=== PATIENT | female | born 1995 | race Caucasian/White ===

== ENCOUNTER 2019-08-07 18:23 | Emergency (ER) | payer OTHER ==
[~2019-08-07] VITALS: Ht 172.7 cm; Wt 97.0 kg
[2019-08-07] MEDS ORDERED: OTC COUGH MED (18:30)
[2019-08-07] MEDS ORDERED: predniSONE 20 MG TAB PO ONE (19:00)
[2019-08-07] MEDS ORDERED: BENZONATATE 100 MG CAP PO ONE (19:00)
[2019-08-07] MEDS ORDERED: ACETAMINOPHEN 325 MG TAB PO ONE (19:15)
[2019-08-07 19:39] VITALS: O2SAT 97
[2019-08-07 19:47] LABS: BASO # 0.1 10^3/uL (0.0-0.2); BASO % 0.8 % (0.0-1.0); EOS # 0.2 10^3/uL (0.0-0.5); EOS % 3.1 % (0.0-3.0); HEMATOCRIT 41.8 % (36.0-47.0); HEMOGLOBIN 14.2 g/dl (12.0-15.5); LYMPH # 3.4 10^3/uL (1.5-5.0); LYMPH % 47.2 % (24.0-44.0); MEAN CORPUSCULAR HEMOGLOBIN 31.8 pg (27.0-33.0); MEAN CORPUSCULAR VOLUME 93.5 fl (80.0-96.0); MONO # 0.4 10^3/uL (0.0-0.8); MONO % 5.3 % (0.0-5.0); NEUTROPHILS # 3.1 10^3/uL (1.5-8.5); NEUTROPHILS % 43.3 % (36.0-66.0); PLATELET COUNT, AUTOMATED 277 10^3/uL (150-450); RED BLOOD COUNT 4.47 10^6/uL (4.00-5.40); WHITE BLOOD COUNT 7.1 10^3/uL (4.0-10.0)
[2019-08-07 20:13] LABS: ALBUMIN 4.3 GM/DL (3.2-5.2); ALT/SGPT 41 U/L (12-78); BILIRUBIN,DIRECT 0.1 MG/DL (0.0-0.2); BILIRUBIN,TOTAL 0.4 MG/DL (0.2-1.0); BLOOD UREA NITROGEN 11 MG/DL (7-18); CALCIUM LEVEL 9.3 MG/DL (8.5-10.1); CARBON DIOXIDE LEVEL 25 MEQ/L (21-32); CHLORIDE LEVEL 108 MEQ/L (98-107); CK-MB VALUE MASS < 1.0 NG/ML (<3.6); CPK CREATINE PHOSPHOKINASE 101 U/L (26-192); CREATININE FOR GFR 0.64 MG/DL (0.55-1.30); GLOMERULAR FILTRATION RATE > 60.0 (>60); GLUCOSE, FASTING 90 MG/DL (70-100); LIPASE 129 U/L (73-393); MB/CK RELATIVE INDEX 0.99 (< OR =4); SODIUM LEVEL 139 MEQ/L (136-145); TOTAL PROTEIN 7.6 GM/DL (6.4-8.2); TROPONIN I < 0.02 NG/ML (< 0.10)
[2019-08-07] MEDS ORDERED: TESS100C PO (20:52)
--- NOTE | 2019-08-07 21:11 | REPVR ---
PROCEDURE INFORMATION: Exam: XR Chest, 1 View Exam date and time: 08/07/2019 8:16 PM Age: 24 years old Clinical indication: Cough and dyspnea; Additional info: Dyspnea/cough TECHNIQUE: Imaging protocol: XR of the chest Views: 1 view. COMPARISON: No relevant prior studies available. FINDINGS: Lungs: Unremarkable. No consolidation. Pleural space: Unremarkable. No pleural effusion. No pneumothorax. Heart/Mediastinum: Unremarkable. No cardiomegaly. Bones/joints: Unremarkable. IMPRESSION: No acute findings. Electronically signed by: Tung Almonte On 08/07/2019 21:11:51 PM
[2019-08-07 22:07] VITALS: BP 128/72
== END 2019-08-07 22:09 | disposition home or self-care (01) ==
LOC: M ED 18:23
DX: J06.9 Acute upper respiratory infection, unspecified (principal); R07.9 Chest pain, unspecified; F17.200 Nicotine dependence, unspecified, uncomplicated
CPT/HCPCS: 36415; 71045; 80048; 80076; 82550; 82553; 83690; 84484; 84702; 85025; 87486; 87581; 87633; 87798; 87880; 99284; U0002

== ENCOUNTER 2020-01-02 11:55 | Emergency (ER) | payer OTHER ==
[~2020-01-02] VITALS: Ht 172.7 cm; Wt 104.5 kg
[~2020-01-02 11:55] MED LIST: OTC COUGH MED; TESS100C PO
[2020-01-02] MEDS ORDERED: ACET-683 PO (12:08)
[2020-01-02] MEDS ORDERED: PRENTAB53 PO (12:08)
[2020-01-02 13:06] VITALS: BP 124/88
== END 2020-01-02 13:15 | disposition home or self-care (01) ==
LOC: M ED 11:55
DX: O99.89 Other specified diseases and conditions complicating pregnancy, childbirth and the puerperium (principal); M54.41 Lumbago with sciatica, right side; Z3A.15 15 weeks gestation of pregnancy

== ENCOUNTER 2020-06-16 12:22 | Inpatient (IN) | payer OTHER ==
[2020-06-16] VITALS (10 sets, daily range): BP systolic 121–147; BP diastolic 59–95
[~2020-06-16] VITALS: Ht 172.7 cm; Wt 119.5 kg
[~2020-06-16 12:22] MED LIST changes: +ACET-683 PO; +AUGM875T28 PO; +PRENTAB53 PO
--- OUTSIDE RECORDS SUMMARY | 2020-06-16 12:27 | CCD ---
Author Author [facility] Organization [facility] Address Unknown Phone Unavailable Support Name Relationship Address Phone [facility] Next Of Kin [address] [place] [address] Unavailable MARQUISE VALENCIA Next Of Kin [address] [place], [place] [id number] Re-disclosure Warning The records that you are about to access may contain information from federally-assisted alcohol or drug abuse programs. If such information is present, then the following federally mandated warning applies: This information has been disclosed to you from records protected by federal confidentiality rules (42 CFR part 2). The federal rules prohibit you from making any further disclosure of this information unless further disclosure is expressly permitted by the written consent of the person to whom it pertains or as otherwise permitted by 42 CFR part 2. A general authorization for the release of medical or other information is NOT sufficient for this purpose. The Federal rules restrict any use of the information to criminally investigate or prosecute any alcohol or drug abuse patient.The records that you are about to access may contain highly sensitive health information, the redisclosure of which is protected by Article 27-F of the [facility] Public Health law. If you continue you may have access to information: Regarding HIV / AIDS; Provided by facilities licensed or operated by the [facility] Office of Mental Health; or Provided by the [facility] Office for People With Developmental Disabilities. If such information is present, then the following [facility] mandated warning applies: This information has been disclosed to you from confidential records which are protected by state law. State law prohibits you from making any further disclosure of this information without the specific written consent of the person to whom it pertains, or as otherwise permitted by law. Any unauthorized further disclosure in violation of state law may result in a fine or senior care sentence or both. A general authorization for the release of medical or other information is NOT sufficient authorization for further disc losure. Encounters Encounter Providers Location Date Indications Data Source(s ) [facility] Urgent [facility] [address] [place] [address] 06/05/2019 12:00:00 AM EST eCW1 ([facility]) [facility] [address] [facility] [address] 06/01/2019 12:00:00 AM EST eCW1 ([facility]) [facility] [address] [place] [address] 05/29/2019 12:00:00 AM EST eCW1 ([facility]) Medications Medication Brand Name Start Date Product Form Dose Route Admi nistrative Instructions Pharmacy Instructions Status Indications Reaction Description Data Source(s) Polymyxin B 89199 UNT/ML / Trimethoprim 1 MG/ML Ophthalmic Solution [Polytrim] Polytrim 07948-5.1 UNIT/ML Polytrim 88947-3.1 UNIT/ML 05/29/2019 12:00:00 AM EST active 1 drop into both eyes eCW1 ([facility]) Insurance Providers Payer name Policy type / Coverage type Policy ID Covered republican ID Covered republican's relationship to keenan Policy Keenan Plan Information [facility] [id number] Results ID Date Data Source [id number] 08/07/2019 06:59:00 PM EDT [facility] Name Value Range Interpretation Code Description Data Elisa rce(s) Supporting Document(s) SARS CORONAVIRUS 2 RNA [facility] This lab was ordered by [facility] and reported by [facility]. Procedure Vital Signs ID Date Data Source UNK Name Value Range Interpretation Code Description Data Source(s) Diastolic blood pressure 84 mm[Hg] 84 mm[Hg] eCW1 ([facility]) Systolic blood pressure 137 mm[Hg] 137 mm[Hg] e CW1 ([facility]) Body temperature [degF] eCW1 ([facility]) Respiratory rate 16 /min 16 /min eCW1 ([facility]) Heart rate 89 /min 89 /min eCW1 ([facility]) Body mass index (BMI) [Ratio] 32.54 kg/m2 32.54 kg/m2 eCW1 ([facility]) Body height 68 [in_us] 68 [in_us] eCW1 ([facility]) Body weight Measured 214 [lb_av] 214 [lb_av] eC W1 ([facility]) Patient Treatment Plan of Care Planned Activity Planned Date Details Description Data Source (s) Polymyxin B 47309 UNT/ML / Trimethoprim 1 MG/ML Ophtha lmic Solution [Polytrim] 05/29/2019 12:00:00 AM EST eCW1 ([facility])
[2020-06-16] MEDS ORDERED: LABE100T36 PO (12:37)
[2020-06-16 13:38] LABS: HEMOGLOBIN 11.5 g/dl (12.0-15.5); MEAN CORPUSCULAR HEMOGLOBIN 30.8 pg (27.0-33.0); MEAN CORPUSCULAR HGB CONC 33.8 g/dl (32.0-36.5); MEAN CORPUSCULAR VOLUME 91.2 fl (80.0-96.0); PLATELET COUNT, AUTOMATED 273 10^3/uL (150-450); RED BLOOD COUNT 3.73 10^6/uL (4.00-5.40); WHITE BLOOD COUNT 10.6 10^3/uL (4.0-10.0)
[2020-06-16 14:04] LABS: ALT/SGPT 14 U/L (12-78); BILIRUBIN,TOTAL 0.5 MG/DL (0.2-1.0); CREATININE FOR GFR 0.61 MG/DL (0.55-1.30); GLOMERULAR FILTRATION RATE > 60.0 (>60); LDH LACTATE DEHYDROGENASE 123 U/L (84-246); URIC ACID 3.9 MG/DL (2.6-6.0)
[2020-06-16] MEDS ORDERED: miSOPROStol 50MCG 1/2 TABLET PO ONE (16:15)
--- NOTE | 2020-06-16 16:44 | HPEPDOC ---
Obstetrical History & Physical General Date of Admission Jun 16, 2020 at 12:22 History of Present Illness 24yo , complicated by maternal hypertension on labetalol, maternal obesity, excessive weight gain in , and hx of depression Chief Complaint: Induction of labor Information Provided By: Patient Age: 24 : 1 Term: 0 Pre-term: 0 Abortions: 0 Livin Care Care: Good Care Dating Final EDC: Jul 03, 2020 Final EDC for Daily Update: Jul 03, 2020 Final EDC by: LMP LMP: September 27, 2019 Weeks + Days: 37 (+4) Antepartum Course Diagnos(e)s maternal obesity, CHTN on meds, excessive weight gain Height (inches): 68 Pre- weight (lbs.): 214 Admission Weight (lbs.): 255.6 Change in Weight (lbs.): 41 Past Medical History Past Obstetrical History : Past Obstetrical History: [facility] PEDIATRIC UROLOGIST History: No pertinent history Past Medical History Medical History high blood pressure, hx of depression Surgical History: Tonsilectomy Family History Significant Family History: Diabetes (mother & father) Social History Marital Status: Family situation: Spouse/partner home Psychosocial History: Depression * Smoker: non-smoker Alcohol: Denies Drugs: denies Abuse Violence Screening Have you been hit/kicked/slapp: No Have you been sexually assault: No Allergies Coded Allergies: No Known Allergies (Unverified , 08/07/19) Medications Scheduled Labetalol HCl (Labetalol HCl) 100 Mg Tablet, 100 MG PO BID Vit,Calc76/Iron/Folic (Prenatabs Rx Tablet) 1 Each Tablet, 1 TAB PO DAILY Physical Examination Physical Examination GENERAL: Alert and oriented times three. BREAST: . ABDOMEN: Gravid and non-tender to touch. FETUS: Is vertex (VTX) by sterile vaginal examination (SVE), fetus is vertex (VTX) by Saul, confirmed on TAUS. HEART RATE: Regular rate and rhythm. LUNGS: Clear to auscultation (CTA). EXTREMITIES: No edema. No clonus. Vital Signs/I&O Vital Signs Date Time Temp Pulse Resp B/P (MAP) Pulse Ox O2 Delivery O2 Flow Rate FiO2 06/16/20 15:14 84 141/86 (104) 06/16/20 12:44 97.9 20 Laboratory Data 24H LABS Laboratory Tests 2 06/16/20 12:35: Serology Scanned Report Hepatitis B Testing 06/16/20 13:20: Nucleated Red Blood Cells % (auto) 0.0, Glomerular Filtration Rate > 60.0, Uric Acid 3.9, Total Bilirubin 0.5, Aspartate Amino Transf (AST/SGOT) 9, Alanine A minotransferase (ALT/SGPT) 14, Lactate Dehydrogenase 123, Syphilis Serology NONREACTIVE CBC/BMP Laboratory Tests 06/16/20 13:20 Pertinent Laboratoy Data Blood Type: B+ RBC Antibody Screen: Negative HIV: Negative Hepatitis B: Negative Rapid Plasma Reagin: Nonreactive Rubella: Immune Varicella: Immune Chlamydia/Gonorrhea: Negative Group B Streptococcus: Negative Cystic Fibrosis: Negative Glucose Tolerance Test: 139 (3hr gtt 104/142/129/71) Anatomy Ultrasound Ultrasound Date: Jun 05, 2020 Placenta Location: Anterior Normal Anatomy: Yes Placenta Previa: No Vaginal Examination Dilation: Fingertip (cervical catheter placed with exam, filled to 80/80) Effacement: 30% Station: -3 Cervical Consistency: Medium Cervical Position: Posterior Presentation: Cephalic presentation Position: Vertex (occiput) Assessment Heart Rate (FHR): 130 Variability: Moderate Accelerations: Positive Decelerations: None Tocometer Contractions: Yes Frequency: irregular Duration: less than 60 seconds Strength: palpated as mild, resting tone palp/soft Multi-drug resistant Organism: No history of MDRO Assessment/Plan Assessment Nina is a 24-year-old (G)1 para (P)0 at 37+4 weeks by 10-week ultr asound. Presents to Labor and Delivery (L&D) for scheduled IOL for CHTN on meds and polyhydramnios. Plan Admit and orient. 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 Diet: regular. Group B Streptococcus (GBS) negative. Labs and intravenous (IV) per unit protocol. Counseled on cytotec, cervical catheter, Pitocin and induction of labor (IOL). Lactated Ringers (LR): at 125 mL/hr. Anticipate normal spontaneous delivery (). C-S as appropriate. GAYATHRI ESPAÑA CNM Jun 16, 2020 16:44
[2020-06-16] MEDS ORDERED: PROMETHAZINE INJ 25 MG/ML VIAL (J2550) IV ONE (20:45)
[2020-06-16] MEDS ORDERED: BUTORPHANOL 2 MG/ML INJ (J0595) IV ONE (20:45)
[2020-06-16] MEDS: LABETALOL 100 MG TAB PO SCH (20:54)
--- NOTE | 2020-06-16 23:28 | IPNPDOC ---
Obstetrical Progress Note Date of Service Jun 16, 2020 Subjective To room for assessment. patient is comfortable in bed. had one dose of stadol and phenergan for pain. had 50mcg of cytotec placed 6 hrs ago, has stopped snow. FHT: 150, Mod, shawn,+accels, -decel--Cat I tracing TOCO: IRREGULAR SVE: 5/50/-3 A/P Latent labor. cat I tracing. will start pitocin at this time. anticipate . Objective Vital Signs Date Time Temp Pulse Resp B/P (MAP) Pulse Ox O2 Delivery O2 Flow Rate FiO2 06/16/20 20:55 18 06/16/20 20:54 87 145/95 06/16/20 18:03 97.6 CLAYTON PLEITEZ MD Jun 16, 2020 23:28
[2020-06-16] MEDS ORDERED: OXYTOCIN DRIP 30 UNITS in IV 1 EA IV SCH (23:30)
[2020-06-17] VITALS (53 sets, daily range): BP systolic 97–161; BP diastolic 47–93
[2020-06-17] MEDS ORDERED: FENTANYL 2MCG/ML ROPIVACAINE 0.2% IN 0.9% NACL 100ML IVBAG As Ordered ONE (00:32)
[2020-06-17] MEDS ORDERED: EPIDURAL COMMENT XX SCH (00:40)
[2020-06-17] MEDS ORDERED: ONDANSETRON 4MG/2ML VIAL IV PRN (00:40)
[2020-06-17] MEDS ORDERED: ePHEDrine SULFATE 25 MG/5 ML(5MG/ML) SYRINGE IV PRN (00:40)
[2020-06-17] MEDS ORDERED: diphenhydrAMINE 50MG/ML VIAL (J1200) IV PRN (00:40)
[2020-06-17] MEDS ORDERED: REFRIGERATOR IV KEYS XX PRN (00:40)
[2020-06-17] MEDS ORDERED: EPIDURAL/PCA KEYS XX PRN (00:40)
[2020-06-17] MEDS ORDERED: LACTATED RINGER'S 1000 ML IV PRN (00:40)
[2020-06-17] MEDS ORDERED: NALOXONE INJ 0.4MG/1ML VIAL (J2310 PER 1MG) IV PRN (00:40)
[2020-06-17] MEDS: FENTANYL/ROPIVACAINE/NACL BAG 100 ML EPIDURAL SCH ×4 (01:07→19:15)
[2020-06-17] MEDS ORDERED: ePHEDrine SULFATE 25 MG/5 ML(5MG/ML) SYRINGE As Ordered ONE (01:20)
[2020-06-17] MEDS: LR 1,000 ML IV SCH ×4 (01:37→16:45)
--- NOTE | 2020-06-17 06:35 | IPNPDOC ---
Obstetrical Progress Note Date of Service Jun 17, 2020 Subjective TO room for assessment. patient confortable in bed with epidural in place FHT: 145, Mod shawn( occ min shawn)+accels, -occasional late decel- resolves with position change--cat II tracing SVE: 50/-2 Ken Caryl: Irregular contractions, Pit at 4. A/P Latent labor, occasinal cat II tracing that resolves with position change. pit started at midnight now at 4. continue pit per l&d Protocol Objective Vital Signs Date Time Temp Pulse Resp B/P (MAP) Pulse Ox O2 Delivery O2 Flow Rate FiO2 06/17/20 01:41 97.9 80 18 120/59 (79) CLAYTON PLEITEZ MD Jun 17, 2020 06:35
[2020-06-17] MEDS: LABETALOL 100 MG TAB PO SCH ×2 (09:00→20:54)
--- NOTE | 2020-06-17 09:35 | IPNPDOC ---
Obstetrical Progress Note Date of Service Jun 17, 2020 Subjective Pt states increased sensation of contractions and discomfort through epidural, feeling wet Objective Vital Signs Date Time Temp Pulse Resp B/P (MAP) Pulse Ox O2 Delivery O2 Flow Rate FiO2 06/17/20 08:42 74 18 128/64 (85) 06/17/20 07:28 98.9 Room Air Assessment Heart Rate (FHR): 150 Variability: Moderate Accelerations: Positive Decelerations: None Heart Rate Tracing: Category I Tocometer Contractions: Yes Frequency: every 2-5 min. Duration: greater than 60 seconds Strength: palpated as moderate, resting tone palp/soft Sterile Vaginal Examination Dilation: 5 cm Effacement (%): 50% Station: -3 Cervical Consistency: Medium Cervical Position: Posterior Postion/Presentation: Cephalic presentation Assessment and Plan Age: 24 : 1 Term: 0 Pre-term: 0 Abortions: 0 Livin Weeks & Days 37+5 Status: Reassuring Group B Streptococcus: Negative Anticipate: Vaginal Delivery Additional Comments Continue LR @125ml/hr, continuous efm x2, continue pitocin augmentation and titrate per protocol, monitor for change in or maternal status, consult anesthesia for evaluation of epidural if needed, evaluate for change as indicated, consider AROM with exam after appropriate decent. GAYATHRI ESPAÑA CNM Jun 17, 2020 09:35
--- NOTE | 2020-06-17 15:29 | IPNPDOC ---
Text Note Date of Service The patient was seen on 06/17/20. NOTE 06/17/20 1230 pm patient admitted to labor for iol at 37.4 weeks for GHTN on Meds progress assessment -3 station 3-4 cm 50% bulging membranes on 8 munits Pitocin. safe to proceed VS,Fishbone, I+O VS, Fishbone, I+O Vital Signs Date Time Temp Pulse Resp B/P (MAP) Pulse Ox O2 Delivery O2 Flow Rate FiO2 06/17/20 15:13 73 117/63 (81) 06/17/20 15:10 98.3 06/17/20 14:41 16 06/17/20 07:28 Room Air Amando Joe MD Jun 17, 2020 15:28
--- NOTE | 2020-06-17 15:37 | IPNPDOC ---
Text Note Date of Service The patient was seen on 06/17/20. NOTE 06/17/20 1530 PM ASSESSMENT ON 12 MUNITS PITOCIN CATEGORY 1 STRIP NORMOTENSIVE SINCE EPIDURAL. EVALUATION 4 CM ANTERIOR -3 STATION NOT WELL APPLIED. AROM CLEAR LIQUA CATEGORY 1 STRIP SAFE TO PROCEED VS,Fishbone, I+O VS, Fishbone, I+O Vital Signs Date Time Temp Pulse Resp B/P (MAP) Pulse Ox O2 Delivery O2 Flow Rate FiO2 06/17/20 15:13 73 117/63 (81) 06/17/20 15:10 98.3 06/17/20 14:41 16 06/17/20 07:28 Room Air Amando Joe MD Jun 17, 2020 15:36
--- NOTE | 2020-06-17 21:40 | IPNPDOC ---
Text Note Date of Service The patient was seen on 06/17/20. NOTE 06/17/20 assessment 2135. patient felt pressure examination fully dilated -1 station moulding ot to op category 1 strip . safe to proceed labor down until feels pushy patient had 1 elevated pressure gave labetalol 100mg Po VS,Fishbone, I+O VS, Fishbone, I+O Vital Signs Date Time Temp Pulse Resp B/P (MAP) Pulse Ox O2 Delivery O2 Flow Rate FiO2 06/17/20 20:54 84 141/77 06/17/20 18:16 99.1 16 06/17/20 07:28 Room Air Amando Joe MD Jun 17, 2020 21:38
[2020-06-18] VITALS (8 sets, daily range): BP systolic 128–150; BP diastolic 64–90
[2020-06-18] MEDS ORDERED: ceFAZolin SOD 2 GM in IV 1 EA IV ONE (01:15)
[2020-06-18] MEDS ORDERED: BUPIVACAINE HCL 0.25% 10ML VIAL SC ONE (01:15)
[2020-06-18] MEDS ORDERED: BICITRA 30ML SOLN UDC PO ONE (01:15)
[2020-06-18] MEDS ORDERED: AZITHROMYCIN INJ 500 MG, VIAL MATE ADAPTER 1 EACH in D5W 250 ML IV ONE (01:15)
[2020-06-18] MEDS ORDERED: ACETAMINOPHEN 650 MG SUPP PR ONE (01:15)
[2020-06-18] MEDS ORDERED: OXYTOCIN INJ 10 UNITS/ML VIAL (J2590) As Ordered ONE (02:06)
[2020-06-18] MEDS ORDERED: MORPHINE PRES-FREE INJ 10 MG/10 ML VIAL (J2274) As Ordered ONE (02:06)
[2020-06-18] MEDS ORDERED: LIDOCAINE 2% W/EPINEPHRINE 20ML VIAL **PRES FREE As Ordered ONE (02:06)
[2020-06-18] MEDS ORDERED: ONDANSETRON 4MG/2ML VIAL As Ordered ONE (02:06)
[2020-06-18] MEDS ORDERED: fentaNYL 100 MCG/2 ML INJECTION (J3010) As Ordered ONE (02:28)
[2020-06-18] MEDS ORDERED: NALOXONE INJ 0.4MG/1ML VIAL (J2310 PER 1MG) IV PRN ×2 (02:30)
[2020-06-18] MEDS ORDERED: diphenhydrAMINE 50MG/ML VIAL (J1200) IV PRN (02:30)
[2020-06-18] MEDS ORDERED: METOCLOPRAMIDE INJ 10MG/2ML VIAL (J2765 PER 1) IV PRN ×2 (02:30→02:45)
[2020-06-18] MEDS ORDERED: NALBUPHINE HCL 10 MG/ML AMP (J2300) IV PRN (02:30)
[2020-06-18] MEDS ORDERED: ONDANSETRON 4MG/2ML VIAL IV PRN ×2 (02:30→02:45)
[2020-06-18] MEDS ORDERED: KETOROLAC 30 MG/ML 1ML VIAL IV PRN (02:45)
[2020-06-18] MEDS ORDERED: PERCOCET 5MG/325MG TAB PO PRN (02:45)
[2020-06-18] MEDS ORDERED: LR 1,000 ML IV SCH (02:45)
[2020-06-18] MEDS ORDERED: fentaNYL 100 MCG/2 ML INJECTION (J3010) IV PRN (02:45)
[2020-06-18] MEDS ORDERED: KETOROLAC 60MG 2ML VIAL As Ordered ONE (02:50)
[2020-06-18] MEDS: LR 1,000 ML IV SCH ×2 (02:58→10:30)
--- NOTE | 2020-06-18 02:58 | IPNPDOC ---
Text Note Date of Service The patient was seen on 06/18/20. NOTE 0100 reviewed plan of care pushing x 1.5 hours failure to progress moulding pop adequate contractions 20 munits Pitocin. plan to stop due to arrest of descent suggest primary cs. reviewed risks hemorrhage infection perforation remote blood transfusion for uncontrolled bleeding remote hysterectomy for uncontrolled bleeding laceration admission to [facility] expressed understanding signed consent category 1 strip safe to proceed VS,Fishbone, I+O VS, Fishbone, I+O Vital Signs Date Time Temp Pulse Resp B/P (MAP) Pulse Ox O2 Delivery O2 Flow Rate FiO2 06/17/20 20:54 84 141/77 06/17/20 18:16 99.1 16 06/17/20 07:28 Room Air I&O- Last 24 Hours up to 6 AM 06/18/20 06:00 Intake Total 4704.4 ml Output Total 2700 ml Balance 2004.4 ml Amando Joe MD Jun 18, 2020 02:57
[2020-06-18] MEDS ORDERED: RHOGAM 300 MCG (1500 IU) INJ (J2790) IM SCH (03:00)
[2020-06-18] MEDS ORDERED: ANUSOL HC CREAM 30GM TOP PRN (03:00)
[2020-06-18] MEDS ORDERED: METHYLERGONOVINE MALEATE 0.2 MG TAB PO PRN (03:00)
[2020-06-18] MEDS ORDERED: MEASLES,MUMPS,RUBELLA VACCINE INJ (MMR-II) (90707) SC SCH (03:00)
[2020-06-18] MEDS ORDERED: ACETAMINOPHEN TAB 650MG DOSE (2X325MG) PO PRN (03:00)
[2020-06-18] MEDS ORDERED: MOM 30ML SUSPENSION UDC PO PRN (03:00)
[2020-06-18] MEDS ORDERED: OXYTOCIN INJ 10 UNITS/ML VIAL (J2590) IV ONE (03:00)
[2020-06-18] MEDS ORDERED: ACETAMINOPHEN 500 MG TAB PO PRN (03:00)
[2020-06-18] MEDS ORDERED: OXYTOCIN DRIP 30 UNITS in IV 1 EA IV ONE (03:00)
[2020-06-18 03:10] LABS: CORD GAS ABE A -5.3; CORD GAS ABE V -6.8; CORD GAS HCO3 A 22.5 MEQ/L; CORD GAS HCO3 V 17.7 MEQ/L; CORD GAS O2 SAT A 31.4 %; CORD GAS O2 SAT V 74.4 %; CORD GAS PCO2 A 52.1 mmHg; CORD GAS PCO2 V 33.2 mmHg; CORD GAS PH A 7.253 UNITS; CORD GAS PH V 7.344 UNITS; CORD GAS PO2 A 17.2 mmHg; CORD GAS PO2 V 33.3 mmHg; CORD GAS SBC A 18.6 MEQ/L; CORD GAS SBC V 18.4 MEQ/L; CORD GAS TCO2 A 24.1 MEQ/L; CORD GAS TCO2 V 18.7 MEQ/L
[2020-06-18] MEDS ORDERED: PERCOCET 5MG/325MG TAB As Ordered ONE (04:23)
[2020-06-18] MEDS: PERCOCET 5MG/325MG TAB PO PRN ×2 (04:28→20:03)
[2020-06-18] MEDS: PRENATAL VITAMINS CHEWABLE TABLET PO SCH (08:59)
[2020-06-18] MEDS: LABETALOL 100 MG TAB PO SCH ×2 (08:59→20:49)
[2020-06-18] MEDS: KETOROLAC 30 MG/ML 1ML VIAL IV SCH ×2 (09:00→15:52)
--- NOTE | 2020-06-18 09:13 | RO ---
OPERATIVE NOTE DATE OF OPERATION: 06/18/2020 This lady is a 2, para 0 admitted for induction of labor for chronic hypertension on medication. She maxed out 20 milliunits of Pitocin. She had adequate contractions, was noted to be in POP position at minus 1 station with moderate amount of molding and asynclitism. The other associated factor is that she has polyhydramnios. After 2-1/2 hours of pushing it was elected to discontinue the Pitocin and primary section was indicated. PREOPERATIVE DIAGNOSIS: Polyhydramnios, macrosomia, failure to progress, failure to descend, persistent occiput posterior. POSTOPERATIVE DIAGNOSIS: Polyhydramnios, macrosomia, failure to progress, failure to descend, persistent occiput posterior. OPERATION PROPOSED: Primary section. OPERATION PERFORMED: Primary section. SURGEON: Amando Joe MD LITIGATION LEGAL ASSISTANT: Dr. Boudreaux for extraction, retraction and visualization without which the procedure could not be completed. ANESTHESIA: Epidural plus local anesthetic intraperitoneal procedures. ESTIMATED BLOOD LOSS: 400 mL. ESTIMATED AMNIOTIC FLUID PRIOR TO DELIVERY: Evaluated to be 1000 mL of clear fluid. DESCRIPTION OF PROCEDURE: After adequate time out, prepped and draped in supine position, Larsen catheter in the bladder draining clear urine, Acetaminophen suppository 1300 mg per rectum, sequentials in place, antibiotics 1 hour preoperatively, the TRAXI was placed appropriately. A Pfannenstiel incision was made 2 finger's breadth above the symphysis pubis passing through abdominal layers securing hemostasis. Opening the peritoneal cavity we noticed the lower segment was quite thin. Low transverse incision into the uterus, we siphoned off 1000 mL of clear fluid, amniotic, after which the head was deeply engaged in the pelvis and required some manipulation to extract the baby's head out of the deep pelvis. Moderate amount of molding was noted. Asynclitism was noted. Cord around the neck x1 loose was noted. We delivered a livebirth male infant weighing 4170 gm, 9 pounds 3 ounces, Apgars 8 and 9 at 1 and 5 minutes respectively. Arterial and venous pH was performed and we are awaiting the results. The placenta was manually removed, three vessels in the cord. Membranes and tissues intact. The uterus contracted well down under Pitocin. The lower segment was oversewn in the usual fashion in two layers imbricating the second layer and then reperitonealization was performed. With instrument and pad count correct, revisiting the incisional site was clean and dry. The Mobius which had been placed prior to incision was then removed and the abdomen was closed with running suture for peritoneum, same for fascia, interrupted for subcu and Dexon to the skin. Marcaine 0.25% 10 mL to the incisional site and Mepore dressing was placed. Uterus again was well contracted on the Pitocin. The patient was taken to recovery in good condition. cc: Jose Miguel Freeman OB MANID
[2020-06-18] MEDS: DOCUSATE SODIUM 100MG CAPSULE PO PRN (20:02)
[2020-06-18] MEDS: IBUPROFEN 800 MG TAB PO SCH (23:58)
[2020-06-19 02:00] VITALS: BP 126/66
[2020-06-19] MEDS: PERCOCET 5MG/325MG TAB PO PRN ×4 (02:47→20:25)
[2020-06-19] MEDS ORDERED: IBUPROFEN 800 MG TAB PO PRN (05:00)
[2020-06-19] MEDS ORDERED: IBUPROFEN 600MG TAB PO PRN (05:00)
[2020-06-19 06:00] VITALS: BP 140/76
--- NOTE | 2020-06-19 07:03 | IPNPDOC ---
Progress Note Date of Service: Jun 19, 2020 Day#: 1 Progress Note SUBJECT: Nina is a 24yo G1 now P1 s/p PLTCS for arrest of descent, doing well day # 1. She has been ambulating, voiding spontaneously without issue and tolerating regular diet. Breast feeding without issue. Reports lochia is light and decreasing. Reports pain is well-controlled on oral pain meds. VITAL SIGNS: Within normal limits, afebrile. RESP: no exaggerated respiratory effort appreciated Abdomen: Fundus firm at U-1. Soft, NTTP. Incision: dressing in place c/d/i Ext:+1 pitting pedal edema, no calf tenderness ASSESSMENT:Nina is a 24yo G1 now P1 s/p PLTCS for arrest of descent, doing well day # 1. Vitals within normal limits, afebrile, hemodynamically stable with no evidence of infection. PLAN: 1. Discharge planning to home tomorrow. 2. Percocet and Motrin for pain. 3. Encourage breast feeding and ambulation. 4. Encourage regular diet as tolerated 5. Routine PP visit in 2 weeks in clinic. VS, I&O, 24H, Fishbone Vital Signs/I&O Vital Signs Date Time Temp Pulse Resp B/P (MAP) Pulse Ox O2 Delivery O2 Flow Rate FiO2 06/19/20 06:00 96.6 86 17 140/76 (97) 97 Room Air I&O- Last 24 Hours up to 6 AM 06/19/20 06:00 Intake Total 2593 ml Output Total 1405 ml Balance 1188 ml SILVANA CLEMENT DO Jun 19, 2020 07:02
[2020-06-19] MEDS: IBUPROFEN 800 MG TAB PO SCH ×3 (07:50→23:46)
[2020-06-19 07:55] LABS: HEMATOCRIT 28.7 % (36.0-47.0); HEMOGLOBIN 9.5 g/dl (12.0-15.5); MEAN CORPUSCULAR HEMOGLOBIN 30.7 pg (27.0-33.0); MEAN CORPUSCULAR HGB CONC 33.1 g/dl (32.0-36.5); MEAN CORPUSCULAR VOLUME 92.9 fl (80.0-96.0); PLATELET COUNT, AUTOMATED 215 10^3/uL (150-450); RED BLOOD COUNT 3.09 10^6/uL (4.00-5.40); WHITE BLOOD COUNT 11.9 10^3/uL (4.0-10.0)
[2020-06-19] MEDS: PRENATAL VITAMINS CHEWABLE TABLET PO SCH (09:38)
[2020-06-19 09:39] VITALS: BP 139/72
[2020-06-19] MEDS: LABETALOL 100 MG TAB PO SCH ×2 (09:39→20:29)
[2020-06-19 14:00] VITALS: BP 149/81
[2020-06-19 18:00] VITALS: BP 135/70
[2020-06-19] MEDS: DOCUSATE SODIUM 100MG CAPSULE PO PRN (20:25)
[2020-06-19 22:00] VITALS: BP 138/83
[2020-06-20 02:00] VITALS: BP 139/80
[2020-06-20 05:51] VITALS: BP 145/76
--- NOTE | 2020-06-20 06:31 | IPNPDOC ---
Progress Note Date of Service: Jun 20, 2020 Day#: 2 Progress Note SUBJECT: 24yo POD2 s/p PLTCD for arrest of decent. She has been ambulating, voiding spontaneously without issue and tolerating regular diet. Breast feeding without issue. Reports lochia is [like a normal period]. Patient is ambulating well. [Reports some cramping with . Denies any pain. Voiding and passing flatus without difficulty]. Denied n/v/d, cp, sob, walsh, visual changes, abd pain, f/c, urinary sx. OBJECTIVE: VITAL SIGNS: Within normal limits, afebrile. Alert and oriented times three. Pulm no increased wob Cards non-tachy. Abdomen: Fundus firm at U-2. Soft, NTTP. [Minimal] lochia per pt Pfannensteil incision is covered with dressing which has minimal strike through ASSESSMENT: [24yo POD2 s/p PLTCD for arrest of decent. She has been ambulating, voiding spontaneously without issue and tolerating regular diet. Vitals within normal limits, afebrile, hemodynamically stable with no evidence of infection. PLAN: 1. Discharge to home today. 2. Tylenol and Motrin for pain. 3. Encourage breast feeding and ambulation. 4. [Minipill] for contraception 5. Routine PP visit in 6 weeks [facility] clinic[facility] Discussed return precautions at length. VS, I&O, 24H, Fishbone Vital Signs/I&O Vital Signs Date Time Temp Pulse Resp B/P (MAP) Pulse Ox O2 Delivery O2 Flow Rate FiO2 06/20/20 05:51 97.9 79 16 145/76 (99) 98 Room Air Laboratory Data 24H LABS Laboratory Tests 2 06/19/20 07:11: Nucleated Red Blood Cells % (auto) 0.0 CBC/BMP Laboratory Tests 06/19/20 07:11 MOISE ELIZALDE DO Jun 20, 2020 06:31
[2020-06-20 08:03] VITALS: BP 154/72
[2020-06-20] MEDS: LABETALOL 100 MG TAB PO SCH (08:03)
[2020-06-20] MEDS: PRENATAL VITAMINS CHEWABLE TABLET PO SCH (08:03)
[2020-06-20] MEDS: IBUPROFEN 800 MG TAB PO SCH (08:04)
--- NOTE | 2020-06-20 22:46 | IPN ---
PROGRESS NOTE DATE: 06/18/2020 This patient and her requested circumcision of her male infant. After discussing risks and benefits of circumcision, the medical and the nonmedical indications, the penile block and aftercare; expressed understanding of penile block, aftercare, and bleeding. Signed the consent form. All questions were answered, 20 minute discussion. We await clearance by the nutrition and dietetics instructor.
== END 2020-06-20 12:05 | disposition home or self-care (01) | DRG 773 ==
LOC: M LDI 12:22 → M OBS 06-18 04:30
PROVIDERS: ADMIT Registered Nurse; ATTEND Obstetrics & Gynecology
PROC: 3E0P7GC Introduction of Other Therapeutic Substance into Female Reproductive, Via Natural or Artificial Opening (ICD-10-PCS; 2020-06-16)
PROC: 10D00Z1 Extraction of Products of Conception, Low, Open Approach (ICD-10-PCS; principal; 2020-06-17)
PROC: 10907ZC Drainage of Amniotic Fluid, Therapeutic from Products of Conception, Via Natural or Artificial Opening (ICD-10-PCS; 2020-06-17)
DX: O10.02 Pre-existing essential hypertension complicating childbirth (principal); O40.3XX0 Polyhydramnios, third trimester, not applicable or unspecified; Z3A.37 37 weeks gestation of pregnancy; Z37.0 Single live birth; O32.4XX0 Maternal care for high head at term, not applicable or unspecified; O69.81X0 Labor and delivery complicated by cord around neck, without compression, not applicable or unspecified